=== PATIENT | male | born 1965 | race African-American/Black ===

== ENCOUNTER 2017-07-21 06:47 | Day surgery (SDC) | payer BC ==
[2017-07-21] MEDS ORDERED: Ringers Lactate 1,000 ML IV ONE (07:04)
[2017-07-21] MEDS ORDERED: CEFAZOLIN/SWI 1gm 1 GM/10 ML SYR ONE (07:04)
[2017-07-21] MEDS ORDERED: FENTANYL CITR 100 MCG/2 ML ONE (07:32)
[2017-07-21] MEDS ORDERED: MIDAZOLAM HCL 2 MG/2 ML INJ ONE (07:32)
[2017-07-21] MEDS ORDERED: LIDOCAINE 2% MPF 5 ML VIAL ONE (07:32)
[2017-07-21] MEDS ORDERED: PROPOFOL 200 MG/20 ML VIAL IV ONE ×2 (07:32→08:39)
[2017-07-21] MEDS ORDERED: BUPIVACA 0.25%/EPI 0.0005%/PF 30 ML VIAL ONE (08:12)
--- NOTE | 2017-07-21 08:23 | EKG ---
Test Date: 2017-07-21 Test Time: 07:18:39 Frame Cleaner: ANGELES MEASUREMENT RESULTS: Intervals: Rate: 79 UT: 154 QRSD: 72 QT: 382 QTc: 438 [place]: P: 76 UT: 154 QRS: -23 T: 114 INTERPRETIVE STATEMENTS: Normal sinus rhythm Possible Left atrial enlargement Low voltage QRS Cannot rule out Anterior infarct, age undetermined T wave abnormality, consider lateral ischemia Abnormal ECG Compared to ECG 05/10/2017 13:18:24 Low QRS voltage now present Myocardial infarct finding still present T-wave abnormality still present Possible ischemia still present Electronically Signed On 07-21-17 08:23:23 CDT by Ruslan Rojo
[2017-07-21] MEDS ORDERED: KETOROLAC 30 MG/ML INJ ONE (08:46)
--- NOTE | 2017-07-21 08:51 | P.OP ---
Preoperative diagnosis: Upper Mid Back Lipoma Postoperative diagnosis: Upper Mid Back Lipoma Primary procedure: Excision of Left Upper Mid Back Lipoma Anesthesia: MAC + Local Estimated blood loss: < 2cc Specimen: 6cm Lipoma Findings: 6 cm lipoma Complications: None Transferred to: Recovery Room Condition: Good
[2017-07-21 09:46] VITALS: TEMP 98
[2017-07-21 13:57] VITALS: BP 122/90; O2SAT 98
--- NOTE | 2017-07-21 19:40 | OP ---
Date of Procedure: 07/21/2017 Surgeon: Dell Donaldson MD, Preoperative Diagnosis: Upper mid back lipoma. Postoperative Diagnosis: Upper mid back lipoma. Procedure Performed: Excision of left upper midback lipoma. Anesthesia: MAC plus local with 0.25% Marcaine with epinephrine. Estimated Blood Loss: Less than 2 cc. Specimen: A 6 cm lipoma. Findings: A 6 cm lipoma. Complications: None. Disposition: Transferred to recovery room in good condition. Procedure In Detail: After informed consent was obtained, the patient brought to the operating room, prepped and draped in the usual sterile fashion. After adequate anesthesia was achieved, I placed a dditional 0.25% Marcaine in the area of the upper midback, slightly to the left of midline in the are a of a 6 cm lipoma. After the skin was appropriately anesthetized and deep tissues appropriately ane sthetized, I made an incision using a 15-blade down to subcutaneous tissues. Skin flaps were then el evated to allow for circumferential dissection using both sharp and blunt dissection as well as elect rocautery circumferentially above the level of the muscle fascia. The 6 cm lipoma was taken on en bl oc and sent off for pathologic examination. The area was copiously irrigated multiple times. Hemost asis was achieved with electrocautery quite easily. The area was copiously irrigated and dried once again and closed with a 2-0 nylon suture in an interrupted fashion. Sterile dressing was placed over top. The patient tolerated the procedure well without evidence of complication, transferred to the PACU in good condition. All counts were correct at the end of e case. ORLY/DAVID Voice ID: [id number] Report ID: [id number]
== END 2017-07-21 09:35 | disposition home or self-care (01) ==
LOC: OR 06:47
PROVIDERS: ATTEND Surgery
PROC: 0JB70ZZ Excision of Back Subcutaneous Tissue and Fascia, Open Approach (ICD-10-PCS; principal; 2017-07-21 08:30)
DX: D17.1 Benign lipomatous neoplasm of skin and subcutaneous tissue of trunk (principal); I10 Essential (primary) hypertension; J44.9 Chronic obstructive pulmonary disease, unspecified; I25.10 Atherosclerotic heart disease of native coronary artery without angina pectoris; I25.2 Old myocardial infarction; F17.210 Nicotine dependence, cigarettes, uncomplicated; Z95.1 Presence of aortocoronary bypass graft; Z86.73 Personal history of transient ischemic attack (TIA), and cerebral infarction without residual deficits; Z80.0 Family history of malignant neoplasm of digestive organs; Z82.49 Family history of ischemic heart disease and other diseases of the circulatory system
CPT/HCPCS: 88304; 93005; J0690; J2250; J3010